=== PATIENT | female | born 1955 | race Caucasian/White ===

== ENCOUNTER → 2016-11-02 10:41 | Outpatient (CLI) | payer MEDICAID | END | disposition home or self-care (01) | LOC: D.CT 10:41 | DX: R19.00 Intra-abdominal and pelvic swelling, mass and lump, unspecified site (principal) ==

== ENCOUNTER → 2017-02-04 05:18 | Day surgery (SDC) | payer MEDICAID ==
[2017-02-02 12:04] LABS: BASOPHILS 0.4 % (0-2); HEMATOCRIT 39.9 % (36.0-48.0); HEMOGLOBIN 13.8 g/dL (12-16); IMMATURE GRANULOCYTES 0.1 % (0-5); LYMPHOCYTES 21.3 % (15-50); MCH 31.2 pg (26.0-34.0); MCHC 34.6 g/dL (31.0-37.0); MCV 90.1 fL (80.0-100.0); MEAN PLATELET VOLUME 11.2 fL (7.4-10.4); MONOCYTES 8.9 % (2-11); NEUTROPHILS 68.3 % (40-80); PLATELET COUNT 234 10x3/uL (130-400); RBC 4.43 10x6/uL (4.00-5.40); RDW 12.8 % (11.5-14.5); WBC 6.8 10x3/uL (4.8-10.8)
[2017-02-02 12:34] LABS: CALC OSMOLALITY 273 mosm/kg (275-300); CALCIUM 9.7 mg/dL (8.5-10.1); CARBON DIOXIDE 30.2 mmol/L (21.0-32.0); CHLORIDE - SERUM 100 mmol/L (98-107); CREATININE - SERUM 0.7 mg/dL (0.6-1.3); GLUCOSE 84 mg/dL (74-106); POTASSIUM - SERUM 3.2 mmol/L (3.5-5.1); SODIUM 138 mmol/L (136-145); UREA NITROGEN 11 mg/dL (7-18); eGFR NON AFRICAN AMERICAN 90 mL/min (90-120)
[~2017-02-04] VITALS: Ht 149.9 cm; Wt 49.4 kg
[~2017-02-04 05:18] MED LIST: CYCLOBENZAPRINE10 MG PO; HCTZ25 MG PO; NORVASC10 MG PO; OMEPRAZOLE40 MG PO; PEPCID40 MG PO
[2017-02-04 06:24] VITALS: BP 122/85; Ht 149.9 cm; Wt 49.4 kg
== END | disposition home or self-care (01) ==
LOC: D.OPS 05:18 → D.PAN 07:30
PROVIDERS: Obstetrics & Gynecology
DX: N88.2 Stricture and stenosis of cervix uteri (principal); I10 Essential (primary) hypertension; I25.10 Atherosclerotic heart disease of native coronary artery without angina pectoris; F41.9 Anxiety disorder, unspecified; I73.00 Raynaud's syndrome without gangrene; Z86.73 Personal history of transient ischemic attack (TIA), and cerebral infarction without residual deficits; Z72.0 Tobacco use

== ENCOUNTER → 2017-07-28 11:05 | Outpatient (CLI) | payer MEDICAID ==
[2017-02-04 06:24] VITALS: BMI 22.0
--- NOTE | ~2017-07-28 | HEMODYNAMI ---
PATIENT:FLORENTIN PIRES MEDICAL RECORD: [id number] : 55 LOCATION:[facility] ADMISSION DATE: 07/28/17 Generatedon:07/28/201713:49 Patient name: FLORENTIN PIRES Patient #: [id number] SSN: DO B: 1955 Date of study: 07/28/2017 Page: Of Hemodynamic Procedure Report Patient Data Patient Demographics Procedure consent was obtained First Name: FLORENTIN Gender: Female Last Name: PRANAY : 1955 Middle Initial: SABRINA Age: 61 year(s) Patient #: [id number] Race: Unknown Additional ID: [id number] Contact details Address: [address] [place] [address] State: [place] City: [facility] Zip code: [address] Admission Admission Data Admission Date: 07/28/2017 Admission Time: 11:05 Height (in.): 62 BSA: 1.5 (m2) Height (cm.): 157.48 BMI: 20.67 (kg/m2) Weight (lbs.): 113 Weight (kg.): 51.26 Procedure Procedure Types Cath Procedure Diagnostic Procedure LHC LHC w/Coronaries PCI Procedure Coronary Stent Coronary Stent Initial Miscellaneous Procedures Moderate Sedation up to 15 minutes Procedure Description Procedure Date Procedure Date: 07/28/2017 Procedure Start Time: 13:26 Procedure End Time: 13:46 Procedure Staff Name Function Gio Barnes MD Performing Physician Jodi Moore RT Monitor Ryann Dyer RT Scrub Everett Still RN Nurse Procedure Data Cath Procedure Fluoroscopy Diagnostic fluoroscopy Total fluoroscopy Time: 4.1 time: 4.1 min min Diagnostic fluoroscopy Total fluoroscopy dose: 489 dose: 489 mGy mGy Contrast Material Contrast Material Type Amount (ml) Isovue 300 117 Entry Location Entry Primary Successful Side Size Upsize Upsize Entry Closure Succes sful Closure Location (Fr) 1 (Fr) 2 (Fr) Remarks Device Remarks Femoral Right 5 Fr 6 Fr Exoseal artery Short Estimated blood loss: 10 ml Diagnostic catheters Device Type Used For End Catheter Placement MULTIPACK JL 4.0 5Fr Procedure catheter MULTIPACK 3DRC 5Fr Procedure catheter MULTIPACK Pigtail 5 Fr Ventriculography catheter Procedure Complications No complications Procedure Medications Medication Administration Route Dosage Oxygen NC 2 l/min Lidocaine 2% added to field 20 Heparin Flush Bag added to field 2 bags (1000units/500ml NS) 0.9% NaCl I.V. 100 ml/hr Versed I.V. 1 mg Fentanyl I.V. 50 mcg Versed I.V. 1 mg Fentanyl I.V. 50 mcg Versed I.V. 1 mg Heparin Bolus I.V. 4000 units Integrilin (Bolus I.V. 4.5 ml 2mg/ml) Versed I.V. 1 mg Plavix P.O. 600 mg Hemodynamics Rest BSA: 1.5 (m2) O2 Consumption: Estimated: 148.05 (ml/min) O2 Consumption indexed: Estimated:98.7 (ml/min/m) Heart Rate: 81 (bpm) Pressure Samples Time Site Value (mmHg) Purpose Heart Use Rate(bpm) 13:32 LV 110/5,10 Snapshot 82 13:32 AO 105/64(83) Pullback 81 13:32 LV 106/10,11 Pullback 81 Gradients Valve Time Site 1 Site 2 Mean SEP/DFP Peak To Heart Use (mmHg) (sec/min) Peak Rate (mmHg) (bpm) Aortic 13:32 LV AO 2 17 1 81 106/10,11 105/64(83) Calculations Valve P-P Mean Valve Index Valve Source Name Gradient Area Flow (cm2) Aortic 1 2 1 2 Snapshots Pre Cath Intra NCS Post Cath Vital Signs Time Heart Resp SPO2 NIBP Rhythm Pain Sedation Rate (ipm) (%) (mmHg) Status Level (bpm) 13:17:01 76 25 99 128/78(95) NSR 0 (11) 10(A) , No pain 13:21:08 75 17 100 122/75(98) NSR 0 (11) 10(A) , No pain 13:25:14 74 20 100 109/73(87) NSR 0 (11) 10(A) , No pain 13:29:14 79 19 99 113/75(87) NSR 0 (11) 9(A) , No pain 13:33:18 81 20 99 103/72(81) NSR 0 (11) 9(A) , No pain 13:37:19 87 21 99 106/67(84) NSR 0 (11) 9(A) , No pain 13:41:25 81 19 99 98/59(76) NSR 0 (11) 9(A) , No pain 13:45:27 81 16 99 111/62(81) NSR 0 (11) 10(A) , No pain Medications Time Medication Route Dose Verified Delivered Reason Notes Effectiveness by by 13:22:12 Oxygen NC 2 Gio Buffie used for l/min [facility] Alfredo Still RN procedure 13:22:18 Lidocaine 2% added 20ml Gio Gio for local to vial [facility] anesthetic field MD BALDWIN 13:22:23 Heparin Flush added 2 Gio Gio used for Bag to bags [facility] procedure (1000units/500ml field MD BALDWIN NS) 13:22:31 0.9% NaCl I.V. 100 Gio Buffie Per physician ml/hr [facility] Alfredo Still RN, MD 13:24:36 Versed I.V. 1 mg Gio Buffie for sedation [facility] Alfredo Still RN, MD 13:24:42 Fentanyl I.V. 50 Gio Buffie for sedation mcg [facility] Alfredo Still RN, MD 13:28:42 Versed I.V. 1 mg Gio Buffie for sedation [facility] Alfredo Still RN, MD 13:28:46 Fentanyl I.V. 50 Gio Bloodie for sedation mcg [facility] Alfredo Still RN, MD 13:32:56 Versed I.V. 1 mg Gio Bloodie for sedation [facility] Alfredo Still RN, MD 13:34:06 Heparin Bolus I.V. 4000 Gio Bloodie for verifi ed units [facility] Alfredo Still RN anticoagulation with dr MD machado 13:36:26 Integrilin I.V. 4.5 Gio Bloodie for wasted (Bolus 2mg/ml) ml [facility] Alfredo Still RN antiplatelet 5.5 ml therapy of vial 13:42:32 Versed I.V. 1 mg Gio Bloodie for sedation St[facility] Alfredo Still RN, MD 13:49:09 Plavix P.O. [address] for mg [facility] Alfredo Still RN antiplatelet therapy Procedure Log Time Note 12:50:24 Patient Height : 62 inches 12:50:33 Patient Weight : 113 lbs 12:51:07 Diagnostic Cath status Elective 12:51:09 Jodi Moore RT(R) sent for patient. Start room use. 12:51:11 Time tracking: Regular hours 12:51:15 Plan of Care:Hemodynamics will remain stable., Cardiac rhythm will remain stable., Comfort level will be maintained., Respiratory function will remain adequate., Patient/ family verbilizes understanding of procedure., Procedure tolerated without complication., Recovers from procedure without complications.. 12:51:20 Patient received from Pre/Post Procedure Room to CCL 2 Alert and oriented. Tansferred to table in Supine position. 13:15:54 Warm blankets applied, and keny hugger turned on for patient comfort. 13:15:54 Correct patient and procedure confirmed by team. 13:15:55 Signed procedure consent form obtained from patient. 13:15:56 ECG and BP/O2 sat monitors applied to patient. 13:15:59 Vital chart was started 13:16:03 Baseline sample Acquired. 13:16:07 Rhythm: sinus rhythm 13:16:08 Full Disclosure recording started 13:16:20 H&P Date Dictated: 07/23/2017 Within 30 days and on chart., H&P Addendum completed by physician on day of procedure. (MUST COMPLETE FOR ALL OUTPATIENTS). 13:16:21 Pre-procedure instructions explained to patient. 13:16:21 Pre-op teaching completed and patient verbalized understanding. 13:16:25 Family in waiting room. 13:16:27 Patient NPO since Midnight. 13:19:07 Is the patient allergic to Iodine/contrast media? No. 13:19:10 Is patient on blood thinner?Yes 13:19:13 ACC The patient was administered the following blood thiners within the last 24 hours: ACCAspirin 13:19:15 Patient diabetic? No. 13:19:18 Snore? Yes 13:19:19 Sleep apnea? No 13:19:39 IV patent on arrival in right forearm with 0.9% NaCl at O. 13:19:45 Lab results completed and on chart. 13:19:48 Right groin area was prepped with chlora-prep and draped in sterile fashion 13:19:50 Alarms reviewed by RCori N. 13:19:50 Sharps counted by scrub and verified by RCoriNCori 13:19:51 Physician paged 13:19:52 Physician arrived 13:19:53 --------ALL STOP TIME OUT------ 13:19:54 Final Timeout: patient, procedure, and site verified with staff and physician. All members of the team are in agreement. 13:19:56 Right groin site verified by team. 13:20:02 Physical assessment completed. ASA score P 2 - A patient with mild systemic disease as per Gio Barnes MD. 13:20:06 Sedation plan: IV Moderate Sedation Medication:Versed, Fentanyl 13:20:12 Use device set Femoral Dx 13:20:16 ACIST Syringe (80003) opened to sterile field. 13:20:16 Bag Decanter (2002S) opened to sterile field. 13:20:17 Medline Cath Pack ([id number]) opened to sterile field. 13:20:17 SHEATH 5FR [place] (AQU233) opened to sterile field. 13:20:18 DIAGNOSTIC WIRE .035 260cm J wire (038149) opened to sterile field. 13:20:19 ACIST Hand Control (47672) opened to sterile field. 13:20:19 ACIST Manifold (66626) opened to sterile field. 13:20:20 DIAGNOSTIC Multipack 5Fr catheter set (EO2918) opened to sterile field. 13:20:20 Tegaderm 4 x 4 (1626W) opened to sterile field. 13:20:20 PERCUTANEOUS ENTRY 19GA needle opened to sterile field. 13:22:12 Oxygen 2 l/min NC was administered by Everett Still RN; used for procedure; 13:22:18 Lidocaine 2% 20ml vial added to field was administered by Gio Barnes MD; for local anesthetic; 13:22:23 Heparin Flush Bag (1000units/500ml NS) 2 bags added to field was administered by Gio Barnes MD; used for procedure; 13:22:31 0.9% NaCl 100 ml/hr I.V. was administered by Everett Still RN; Per physician; 13:24:36 Versed 1 mg I.V. was administered by Everett Still RN; for sedation; 13:24:42 Fentanyl 50 mcg I.V. was administered by Everett Still RN; for sedation; 13:26:08 Procedure started. 13:26:17 Local anesthetic to right femoral artery with Lidocaine 2% by Gio Barnes MD.INITIAL ACCESS ONLY 13:26:18 Access obtained with 4Fr micropunture. 13:26:26 A 5 Fr sheath was inserted into the Right Femoral artery 13:26:56 J wire advanced. 13:27:05 A MULTIPACK JL 4.0 5Fr catheter was advanced over the wire and used for Procedure. 13:27:09 LCA angiography performed. 13:28:42 Versed 1 mg I.V. was administered by Everett Still RN; for sedation; 13:28:46 Fentanyl 50 mcg I.V. was administered by Everett Still RN; for sedation; 13:29:54 Catheter removed. 13:30:04 A MULTIPACK 3DRC 5Fr catheter was advanced over the wire and used for Procedure. 13:30:34 Catheter removed. 13:30:44 A MULTIPACK Pigtail 5 Fr catheter was advanced over the wire and used for Ventriculography. 13:31:22 Zero performed for pressure channel P1 13:32:35 Catheter removed. 13:32:40 EF : 55 % 13:32:56 Versed 1 mg I.V. was administered by Everett Still RN; for sedation; 13:33:14 WHISPER 300cm guide wire ([id number]) opened to sterile field. 13:33:15 GUIDE 6FR XBLAD 3.5 catheter ([id number]) opened to sterile field. 13:33:15 INFLATOR Merit BasixCompak (AL7498) opened to sterile field. 13:33:16 SHEATH 6FR [place] (MJH436) opened to sterile field. 13:33:20 Proceeding to intervention. 13:33:29 Sheath upsized to a 6 Fr Short. 13:33:40 6 Fr XBLAD 3.5 guide catheter was inserted over the wire 13:33:44 whisper wire advanced. 13:34:06 Heparin Bolus 4000 units I.V. was administered by Everett Still RN; for anticoagulation; verified with dr machado 13:36:26 Integrilin (Bolus 2mg/ml) 4.5 ml I.V. was administered by Everett Still RN; for antiplatelet therapy; wasted 5.5 ml of vial 13:38:19 Inflation Number: 1 A JOSHUA OTW 2.5 x 12 stent ([id number]) was prepped and advanced across the Dist LAD. The stent was deployed at 14 DEDRICK for 0:32 (min:sec). 13:38:53 Wire advanced across lesion. 13:39:05 Stent catheter was removed intact over wire. 13:41:43 Inflation Number: 1 A JOSHUA OTW 3.0 x 18 stent ([id number]) was prepped and advanced across the Mid LAD. The stent was deployed at 14 DEDRICK for 0:23 (min:sec). 13:42:30 Inflation number: 2 The stent balloon was then re-inflated across the Mid LAD to 2 DEDRICK for 0:06 (min:sec). 13:42:32 Versed 1 mg I.V. was administered by Everett Still RN; for sedation; 13:43:19 Wire removed. 13:43:20 Guide catheter removed. 13:43:31 EXOSEAL 6Fr (EX600) opened to sterile field. 13:43:57 Sheath removed intact; hemostasis achieved with Exoseal to the Right Femoral artery. 13:44:00 Procedure ended.(Physican Out) 13:44:13 Fluoroscopy time 04.10 minutes. 13:44:19 Fluoroscopy dose: 489 mGy 13:44:19 Flurop Dose total: 489 13:44:23 Contrast amount:Isovue 300 117ml. 13:44:25 Sharps counted by scrub and verified by R.N. 13:44:32 Post-op/insertion site Right Femoral artery dressed using a 4 x 4 and Tegaderm. 13:44:46 Post Procedure Pulses reassessed and unchanged 13:44:50 Post-procedure physical assessment completed. ASA score P 2 - A patient with mild systemic disease as per Gio Barnes MD. 13:44:55 Post procedure rhythm: sinus rhythm 13:44:59 Estimated blood loss: 10 ml 13:45:01 Post procedure instruction explained to patient.Patient verbalizes understanding. 13:45:02 Patient needs reinforcement of post procedure teaching. 13:45:17 Procedure type changed to Cath procedure, Diagnostic procedure, LHC, LHC w/Coronaries, PCI procedure, Coronary Stent, Coronary Stent Initial, Miscellaneous Procedures, Moderate Sedation up to 15 minutes 13:45:18 Procedure and supply charges have been captured, reviewed, submitted and are correct. 13:45:51 Procedure Complication : No complications 13:45:54 Vital chart was stopped 13:45:54 See physician's report for complete and final results. 13:45:57 Report given to Pre/Post Procedure Room. 13:46:01 Patient transfered to Pre/Post Procedure Room with Stretcher. 13:46:03 Procedure ended. 13:46:03 Full Disclosure recording stopped 13:46:07 End room use (Document Last) 13:46:07 End room use (Document Last) 13:49:09 Plavix 600 mg P.O. was administered by Everett Still RN; for antiplatelet therapy; Intervention Summary Intervention Notes Time ActionType Lesion and Equipment Action# Pressure Duration Attributes Used 13:38:19 Place stent Dist LAD JOSHUA OTW 2.5 1 14 00:32 x 12 stent ([id number]) 13:41:43 Place stent Mid LAD JOSHUA OTW 3.0 1 14 00:23 x 18 stent ([id number]) 13:42:30 Reinflate Mid LAD JOSHUA OTW 3.0 2 2 00:07 stent x 18 stent balloon ([id number]) Device Usage Item Name Manufacture Quantity Catalog Hospital Part Current Mini mal Lot# / Number Charge Number Stock Stock Serial# Code ACIST Syringe Acist 1 86943 634983 976397 [id number] 20 (78900) Medical Systems Inc Bag Decanter Microtek 1 2001S 992312 88311 833840 5 (2001S) Medical Inc. Medline Cath Cardinal 1 [id number] 768422 53685 416823 5 Pack Health ([id number]) SHEATH 5FR Terumo 1 IMO476 534671 540500 469141 40 [place] (VHQ985) DIAGNOSTIC St Afshin 1 375375 346704 042713 984999 30 WIRE .035 260cm J wire (878056) ACIST Hand Acist 1 06552 617017 582977 440693 5 Control Medical (26126) Systems Inc ACIST Acist 1 08722 121387 316610 407246 5 Manifold Medical (62819) Systems Inc DIAGNOSTIC Cardinal 1 FJ6526 578316 05730 423260 30 Multipack 5Fr Health catheter set (ET3970) Tegaderm 4 x 3M 1 1626W 372423 605217 704940 5 4 (1626W) PERCUTANEOUS Hondo Medical 1 D33766 551590 796100 5 ENTRY 19GA needle MULTIPACK JL Cardinal 1 984916 5 4.0 5Fr Health catheter MULTIPACK Cardinal 1 268411 5 3DRC 5Fr Health catheter MULTIPACK Cardinal 1 638780 5 Pigtail 5 Fr Health catheter WHISPER 300cm [place] 1 [id number] 461562 043842 292512 5 guide wire Vascular (3941023AR) GUIDE 6FR Cardinal 1 [id number] 529594 047496 579756 10 XBLAD 3.5 Health catheter (99326914) INFLATOR Merit 1 AV7294 356647 908842 650687 15 Calorics Medical BasixCompak (YX9658) SHEATH 6FR Terumo 1 RUA718 319887 288210 659151 40 [place] (GLM211) JOSHUA OTW 2.5 Medtronic 1 [id number] 396182 54276 502379 5 [id number] x 12 stent ([id number]) JOSHUA OTW 3.0 Medtronic 1 [id number] 168444 9693051 789414 5 [id number] x 18 stent ([id number]) EXOSEAL 6Fr Cardinal 1 EX600 050912 206955 081173 10 (EX600) Health Signature Audit [place] Stage Time Signature Unsigned Intra-Procedure 07/28/2017 Jodi Moore 1:49:40 PM RT(R) Signatures Monitor : Jodi Moore Signature : RT Date : Time : [facility] [address] [place] [address]
[~2017-07-28 11:05] MED LIST changes: +ASPIRIN EC81 M1 PO; +COREG 3.1253.125 MG PO
[2017-07-28 11:48] LABS: BASOPHILS 0.6 % (0-2); EOSINOPHILS 3.9 % (0-7); HEMATOCRIT 38.5 % (36.0-48.0); HEMOGLOBIN 13.1 g/dL (12-16); IMMATURE GRANULOCYTES 0.4 % (0-5); LYMPHOCYTES 32.6 % (15-50); MCH 30.5 pg (26.0-34.0); MCV 89.7 fL (80.0-100.0); MEAN PLATELET VOLUME 11.2 fL (7.4-10.4); MONOCYTES 9.4 % (2-11); NEUTROPHILS 53.1 % (40-80); PLATELET COUNT 232 10x3/uL (130-400); RBC 4.29 10x6/uL (4.00-5.40); RDW 12.7 % (11.5-14.5); WBC 4.7 10x3/uL (4.8-10.8)
[2017-07-28 12:04] LABS: CALC OSMOLALITY 276 mosm/kg (275-300); CALCIUM 9.5 mg/dL (8.5-10.1); CARBON DIOXIDE 27.7 mmol/L (21.0-32.0); CHLORIDE - SERUM 104 mmol/L (98-107); CREATININE - SERUM 0.8 mg/dL (0.6-1.3); GLUCOSE 87 mg/dL (74-106); POTASSIUM - SERUM 3.9 mmol/L (3.5-5.1); SODIUM 140 mmol/L (136-145); UREA NITROGEN 11 mg/dL (7-18); eGFR NON AFRICAN AMERICAN 77 mL/min (90-120)
--- NOTE | 2017-07-28 14:25 | NUR ---
ALERT AND ORIENTED X4. LAYING FLAT IN BED. FAMILY AT BEDSIDE. RT GROIN DRESSING CLEAN DRY INTACT. FREE FROM HEMATOMA. FREE FROM BLEEDING. PULSES PALPABLE BILATERALLY. SINUS RHYTHM 73bpm ON TELEMETRY. DISCUSS WITH PATIENT AND FAMILY IMPORTANCE OF KEEPING RT LEG STRAIGHT AND HEAD FLAT TO PREVENT BLEEDING. DENIES SOB OR PAIN. CONTINUE PLAN OF CARE AND SAFETY PRECAUTIONS. BED LOCKED AND LOW. CALL LIGHT IN REACH. TWO SIDERAILS UP.
--- NOTE | 2017-07-28 15:25 | NUR ---
ALERT AND ORIENTED X4. LAYING FLAT IN THE BED. FAMILY AT BEDSIDE. RT GROIN DRESSING CLEAN DRY INTACT. FREE FROM HEMATOMA. FREE FROM BLEEDING. ASSIST ON BEDPAN. PULSE PALPABLE BILATERALLY. NO CHANGE. CONTINUE PLAN OF CARE AND SAFETY PRECAUTIONS.
--- NOTE | 2017-07-28 17:12 | NUR ---
REPORT OFF TO DARELL HENNESSY TO RESUME PLAN OF CARE.
--- NOTE | 2017-07-28 17:40 | NUR ---
HOB ELEVATED 30 DEGREES. RIGHT GROIN 6F EXOSEAL CDI, NO BLEEDING OR HEMATOMA NOTED. WILL CONTINUE TO MONITOR CLOSELY.
--- NOTE | 2017-07-28 17:55 | NUR ---
RIGHT AC PIV D/C'D WITH CATHETER INTACT, BAND AID TO SITE. UP TO BEDSIDE TO GET DRESSED.
--- NOTE | 2017-07-28 18:03 | NUR ---
DISCHARGE INSTRUCTIONS GIVEN, VERBALIZED UNDERSTANDING.
--- NOTE | 2017-07-28 18:15 | NUR ---
TAKEN OUT VIA WHEELCHAIR BY CATH CATERPILLAR OPERATOR. LEFT FACILITY WITH FAMILY AND ALL PERSONAL BELONGINGS.
--- NOTE | 2017-07-29 13:26 | OP ---
PATIENT NAME: FLORENTIN PIRES MEDICAL RECORD: [id number] :55 LOCATION:D.[facility] ADMISSION DATE: SURGEON: BIBIANA VELIZ MD DATE OF OPERATION: 07/28/2017 PROCEDURES: Left heart catheterization, selective coronary angiography, right femoral artery approach. CATHETERS: A 5-Guinean sheath, 5/4 left and right Rose, 5/4 pig. The procedure was well tolerated and proceeded immediately to PTCA and stenting of the LAD after the procedure was finished. FINDINGS: Left ventriculography shows mild anterior hypo, but overall LV function preserved at 50% or better. CORONARY ANATOMY: Left main: Left main is free of disease. LAD: Has a proximal elongated stenosis of 80% and distally after takeoff of the second diagonal a more discrete 80%. Circumflex: Codominant system, free of disease. Right coronary artery: Codominant system, free of disease. IMPRESSION: Single-vessel disease involving LAD, intervention momentarily. DESCRIPTION OF PROCEDURE: A 5-Guinean sheath was changed for a 6-Guinean sheath. XB LAD guide catheter provided good guide catheter support, followed by 300 cm Whisper wire placed across both lesions in the LAD. distal portion of this vessel. Next, distal stent deployed was a 2.5 x 12-mm Beatty drug-eluting stent up to 14 atmospheres for 45 seconds. More proximal lesion was addressed with a 3.0 x 18-mm Rudy drug-eluting stent up to 14 atmospheres. Final angiography shows excellent resolution of both 80% stenosis, no significant residual. MARY GRACE flow was 3 throughout the procedure. Plavix was loaded in the lab. Sheath was closed with ExoSeal device. TRANSINT:[id number] Voice Confirmation ID: [id number] DOCUMENT ID: [id number] BIBIANA VELIZ MD at 1326 CC: [id number] DICTATION DATE: 07/28/17 1345 WAISTLINE JOINER OVERLOCK: 07/28/17 1440 DEP CLI 07/28/17 [place] [id number]
== END | disposition home or self-care (01) ==
LOC: D.CATH 11:05
PROVIDERS: Internal Medicine Interventional Cardiology
DX: I20.9 Angina pectoris, unspecified (principal); R07.9 Chest pain, unspecified; E78.5 Hyperlipidemia, unspecified; I10 Essential (primary) hypertension; I47.1 Supraventricular tachycardia; F17.200 Nicotine dependence, unspecified, uncomplicated; Z01.812 Encounter for preprocedural laboratory examination

== ENCOUNTER → 2019-05-18 09:57 | Outpatient (CLI) | payer MEDICAID ==
[2017-02-04 06:24] VITALS: BMI 22.0
--- NOTE | 2019-05-22 13:29 | EC ---
PATIENT:FLORENTIN PIRES DATE OF SERVICE: 05/18/19 SEX: F MEDICAL RECORD: [id number] DATE OF : 55 LOCATION:[facility] AGE OF PATIENT: 63 ADMISSION DATE: 05/18/19 REFERRING PHYSICIAN: INTERPRETING PHYSICIAN: BIBIANA VELIZ MD ECHOCARDIOGRAM REPORT ECHO CHARGES 4 ECHO COMPLETE Date: 05/18/19 CLINICAL DIAGNOSIS: CAD ECHOCARDIOGRAPHIC MEASUREMENTS (adult normal given) AC root (d.<3.7cm) 2.7 cm LV Septum d (<1.2 cm> 1.0 cm Valve Excursion 1.3 cm LV Septum (systole) 1.2 cm Left Atria (s.<4.0cm> 2.7 cm LVPW d(<1.2cm) 1.1 cm RV (d.<2.3cm) 2.8 cm LVPW (sytole) 1.4 cm LV diastole(<5.6CM) 3.6 cm MV E-F(>70mm/sec) cm LV systole 2.4 cm LVOT Diameter 1.9 cm MV exc.(>10mm) 1.2 cm Est.ejection fraction (50-75%) % DOPPLER: LVIT cm/sec A cm/sec E 72.0 cm/sec LA cm/sec RVSP 29 mmHg LVOT 108 cm/sec AOP1/2T m/s Asc. Ao 123 cm/sec RVOT 82 cm/sec RA cm/sec PA 90 cm/sec AV Gradient Peak 6.09 mmHg AV Mean 3.34 mmHg AV Area 2.5 cm MV Gradient Peak 3.30 mmHg MV Mean 1.60 mmHg MV Area cm COMMENTS: Flat Optical Element Maker: 2 JANIS SCOTT Drill Press Operator Helper: 3 Dr. Barnes TAPE# PACS Pericardial Effusion N DATE OF SERVICE: Adequate 2D, color flow, spectral Doppler, and M-mode. No LVH. LV internal dimension is normal. Wall motion is normal. EF is greater than or equal to 55%. Aortic valve is tricuspid. No evidence of stenosis by Doppler interrogation. Left atrium is normal at 2.7 cm. Mitral valve shows no prolapse. Trace MR. Right-sided chambers grossly normal. Trace TR. TRANSINT:[id number] Voice Confirmation ID: [id number] DOCUMENT ID: [id number] ECHOCARDIOGRAM REPORT [id number] PIRES,FLORENTIN VELIZ,BIBIANA Pena MD at 1329 CC: [id number] DICTATION DATE: 05/18/19 1355 COMMUTATOR OPERATOR: 05/18/19 1424 DEP CLI 05/18/19 [facility] [address] [place] [address]
== END | disposition home or self-care (01) ==
LOC: D.HCCECHO 09:57
PROVIDERS: ATTEND Internal Medicine Interventional Cardiology
DX: I25.10 Atherosclerotic heart disease of native coronary artery without angina pectoris (principal)